=== PATIENT | male | born 1995 | race Caucasian/White ===

== ENCOUNTER 2017-07-30 18:30 | Emergency (ER) | payer OTHER ==
--- NOTE | 2017-07-30 18:45 | UC ---
Skin Complaint HPI - HPI Summary HPI Summary: 22 yo WM presents s/p tick bite to scrotum. He tells me that 2 days ago he went fishing, earlier today noticed a tick on the right side of his scrotum. He was able to fully remove the tick and says it was not engorged. - History of Current Complaint Time Seen by Provider: 07/30/17 18:45 Stated Complaint: SKIN COMPLAINT/TICK Hx Obtained From: Patient - Allergy/Home Medications Allergies/Adverse Reactions: Allergies Allergy/AdvReac Type Severity Reaction Status Date / Time No Known Allergies Allergy Verified 07/30/17 18:52 Home Medications: Home Medications NK [No Home Medications Reported] 07/30/17 [History Confirmed 07/30/17] Review of Systems Constitutional: Negative Skin: Other - tick bite scrotum Respiratory: Negative Cardiovascular: Negative Neurovascular: Negative Neurological: Negative Psychological: Negative All Other Systems Reviewed And Are Negative: Yes PMH/Surg Hx/FS Hx/Imm Hx - Additional Past Medical History Additional PMH: None Previously Healthy: Yes - Surgical History Surgical History: None - Family History Known Family History: Positive: None - Social History Occupation: Student Lives: With Family Alcohol Use: Occasionally Substance Use Type: None Smoking Status (MU): Never Smoked Tobacco Physical Exam - Summary Physical Exam Summary: GENERAL: NAD. WDWN. No pain distress. SKIN: Right side of scrotum: there is a 2mm diameter of mild erythema and edema with central 1mm area of superficial skin loss. No streaking, bleeding, or drainage. NECK: Supple. Nontender. No lymphadenopathy. CHEST: No accessory muscle use. Breathing comfortably and in no distress. CV: RRR. Without m/r/g. NEURO: Alert. CN II-XII grossly intact. PSYCH: Age appropriate behavior. Triage Information Reviewed: Yes Course/Dx - Course Course Of Treatment: Offered prophylactic treatment, but pt declined and elected to monitor for rash or signs/symptoms of lyme. - Diagnoses Provider Diagnoses: tick bite Discharge - Sign-Out/Discharge Documenting (check all that apply): Discharge/Admit/Transfer - Discharge Plan Condition: Stable Disposition: HOME Patient Education Materials: Lyme Disease (ED), Tick Bite (ED) Referrals: Non Staff,Doctor [Primary Care Provider] - Additional Instructions: TICK BITE: You have been bitten by a tick. Once the tick is removed, these "bites" usually cause no problems. Tick fever, tick paralysis, [place] Spotted fever, and Lyme disease are uncommon -- but you should mention this tick bite to your doctor if you develop unusual symptoms in the next several weeks. If you develop any of the following, please see your physician promptly: (1) Fever, chills, or generalized malaise associated with a headache. (2) A red round area at the site of the bite (or elsewhere) (3) Joint pain, joint swelling or generalized weakness. (4) Redness, swelling, or drainage at the site of the bite. - Billing Disposition and Condition Condition: STABLE Disposition: HOME
[2017-07-30 18:54] VITALS: BP 146/83
== END 2017-07-30 19:04 | disposition home or self-care (01) ==
LOC: UCCORT 18:30
DX: S30.863A Insect bite (nonvenomous) of scrotum and testes, initial encounter (principal); W57.XXXA Bitten or stung by nonvenomous insect and other nonvenomous arthropods, initial encounter; Y93.89 Activity, other specified; Y92.9 Unspecified place or not applicable
CPT/HCPCS: 99201; G0463